=== PATIENT | female | born 1935 | race Caucasian/White ===

== ENCOUNTER 2022-01-29 19:27 | Emergency (ER) | payer MEDICARE, OTHER ==
[2022-01-29] MEDS ORDERED: Diphtheria,Pertussis(Acell),Tetanus Vaccine 0.5 ML Syringe IM ONE (20:22)
== END 2022-01-29 20:42 | disposition home or self-care (01) ==
LOC: JP.ED 19:27
DX: S00.83XA Contusion of other part of head, initial encounter (principal); E03.9 Hypothyroidism, unspecified; Z88.8 Allergy status to other drugs, medicaments and biological substances; Z79.899 Other long term (current) drug therapy; Z79.82 Long term (current) use of aspirin; Z90.49 Acquired absence of other specified parts of digestive tract; Z23 Encounter for immunization; W27.3XXA Contact with needle (sewing), initial encounter
CPT/HCPCS: 90471; 90715; 99281; 99283-25

== ENCOUNTER 2024-06-17 13:36 | Emergency (ER) | payer MEDICARE, OTHER ==
[2024-06-17] MEDS: Lidocaine 1% 5 ML VIAL INJECT ONE (13:59)
[2024-06-17] MEDS: Bacitracin Oint 1 GM U/D Packet TOP ONE (13:59)
== END 2024-06-17 14:43 | disposition home or self-care (01) ==
LOC: JP.ED 13:36
DX: S61.217A Laceration without foreign body of left little finger without damage to nail, initial encounter (principal); E03.9 Hypothyroidism, unspecified; Z90.49 Acquired absence of other specified parts of digestive tract; Z79.82 Long term (current) use of aspirin; Z79.890 Hormone replacement therapy; Z79.899 Other long term (current) drug therapy; Z88.8 Allergy status to other drugs, medicaments and biological substances; W26.0XXA Contact with knife, initial encounter
CPT/HCPCS: 12002; 99282